=== PATIENT | male | born 1950 | race African-American/Black ===

== ENCOUNTER 2019-05-03 13:02 | Inpatient (IN) | payer OTHER ==
[2019-05-03 14:45] VITALS: BMI 24.2
--- NOTE | 2019-05-03 15:46 | HP ---
CIWA Score - Admission Criteria [facility]AS Guidelines: Admission for Medically Managed Detox: Requires at least one of the followin. CIWA greater than 12 2. Seizures within the past 24 hours 3. Delirium tremens within the past 24 hours 4. Hallucinations within the past 24 hours 5. Acute intervention needed for co occurring medical disorder 6. Acute intervention needed for co occurring psychiatric disorder 7. Severe withdrawal that cannot be handled at a lower level of care (continued vomiting, continued diarrhea, abnormal vital signs) requiring intravenous medication and/or fluids 8. Admission ROS [facility] Chief Complaint: seeking rehab after finishing detox Allergies/Adverse Reactions: Allergies Allergy/AdvReac Type Severity Reaction Status Date / Time Pork/Porcine Containing AdvReac Intermediate Nausea Verified 05/03/19 14:20 Products History of Present Illness: 69 y/o/m here seeking rehab. He stated detox at [facility] on 04/26 and finished his stay there today and then came here directly. He states he was given Librium while in detox. He would like to stay here for rehab. He states he was in detox for alcohol. He was also using THC, percocets, cocaine, and K2. He was drinking a pint of vodka and 6 pack of 16oz of beer daily. He started drinking early in the mornings and continued throughout the day. He was using $ 20-$30 dollars worth of cocaine daily which he was using by smoking. He was smoking 1 blunt of marijuana daily. He was also doing K2 once a week. He was using Percocet twice a week which he was buying off the street. He is currently smoking 4 cigarettes a day. He has a history of seizures and his last seizure was about 2 weeks ago. He did not go to a hospital at time. He has a history of afib, HTN, chronic back pain, PTSD, insomnia, anxiety attacks. He is living in his own apartment with a roommate and is unemployed. Patient has a history of a positive PPD (unsure of when) and states he took TB medications for one year and has had negative CXR since. He complains of chronic back pain. - Ebola screening Have you traveled outside of the country in the last 21 days: No Have you had contact with anyone from an Ebola affected area: No Do you have a fever: No - Review of Systems Constitutional: No Symptoms Reported EENT: reports: No Symptoms Reported. denies: Nose Congestion, Throat Pain Respiratory: reports: No Symptoms reported Cardiac: reports: No Symptoms Reported GI: reports: Diarrhea. denies: Nausea : reports: No Symptoms Reported Musculoskeletal: reports: Back Pain (chronic) Integumentary: reports: No Symptoms Reported Neuro: reports: Tremors Endocrine: reports: No Symptoms Reported Psychiatric: reports: Anxious Other Systems: Reviewed and Negative Patient History - Patient Medical History Hx Anemia: No Hx Asthma: No Hx Chronic Obstructive Pulmonary Disease (COPD): No Hx Cancer: No Hx Cardiac Disorders: Yes (Atrial fibrillation) Hx Congestive Heart Failure: No Hx Hypertension: Yes Hx Hypercholesterolemia: No Hx Pacemaker: No HX Cerebrovascular Accident: No Hx Seizures: No Hx Dementia: No Hx Diabetes: No Hx Gastrointestinal Disorders: No Hx Liver Disease: Yes Hx Genitourinary Disorders: No Hx Sexually Transmitted Disorders: No Hx Renal Disease (ESRD): No Hx Thyroid Disease: No Hx Human Immunodeficiency Virus (HIV): No (negative 02/04/19) Hx Hepatitis C: No Hx Depression: Yes Hx Suicide Attempt: No Hx Bipolar Disorder: No Hx Schizophrenia: No Other Medical History: no suicidal or homicidal ideations - Patient Surgical History Past Surgical History: No Hx Neurologic Surgery: No Hx Cataract Extraction: No Hx Cardiac Surgery: No Hx Lung Surgery: No Hx Breast Surgery: No Hx Breast Biopsy: No Hx Abdominal Surgery: No Hx Appendectomy: No Hx Cholecystectomy: No Hx Genitourinary Surgery: No Hx Section: No Hx Orthopedic Surgery: No Anesthesia Reaction: No - PPD History Previous Implant?: Yes Documented Results: Positive w/o proof Implanted On Prior [facility] Admission?: No Date: 10/30/18 Results: positive PPD - Smoking Cessation Smoking history: Current every day smoker Have you smoked in the past 12 months: Yes Aproximately how many cigarettes per day: 4 Cigars Per Day: 0 Hx Chewing Tobacco Use: No Initiated information on smoking cessation: Yes 'Breaking Loose' booklet given: 05/03/19 - Substance & Tx. History Hx Alcohol Use: Yes Substance Use Type: Alcohol, Cocaine, Marijuana - Substances abused Alcohol Substance route: Oral Frequency: Daily Amount used: 1 PINT, 6PACK Age of first use: 19 Date of last use: 04/25/19 Marijuana/Hashish Substance route: Smoking Frequency: Daily Amount used: 1BLUNT Age of first use: 22 Date of last use: 04/25/19 Crack Substance route: Smoking Frequency: Daily Amount used: $20-$30 Age of first use: 40 Date of last use: 04/25/19 K2/Spice Substance route: Smoking Frequency: 1-2 times per week Amount used: 1STICK Age of first use: 65 Date of last use: 04/25/19 Family Disease History - Family Disease History Family Disease History: Other: Father (alcoholism - ), Mother ( alcoholism - ) Admission Physical Exam [facility] - Vital Signs Vital Signs: Vital Signs - 24 hr 05/03/19 14:15 Temperature 97.4 F L Pulse Rate 91 H Respiratory 18 Rate Blood Pressure 147/98 - Physical General Appearance: Yes: Disheveled HEENTM: Yes: EOMI, Normocephalic, Other (poor dentition) Respiratory: Yes: Lungs Clear, No Accessory Muscle Use Neck: Yes: Supple Cardiology: Yes: S1, S2, Irregularly Irregular Abdominal: Yes: Normal Bowel Sounds, Non Tender, Soft. No: Guarding, Rebound Musculoskeletal: Yes: full range of Motion Extremities: Yes: Normal Capillary Refill. No: Swelling, Calf Tenderness Neurological: Yes: reagent tender helper II-XII NML intact, Fully Oriented, Alert, Motor Strength 5/5, Finger to Nose Integumentary: Yes: Dry. No: Rash, Pitting Edema - Diagnostic (1) Alcohol use disorder Current Visit: Yes Status: Acute (2) Cocaine use disorder, mild, abuse Current Visit: Yes Status: Acute (3) Afib Current Visit: Yes Status: Acute (4) Positive PPD Current Visit: Yes Status: Acute (5) Cannabis dependence Current Visit: Yes Status: Chronic (6) Hypertension Current Visit: No Status: Chronic Qualifiers: Hypertension type: essential hypertension Qualified Code(s): I10 - Essential (primary) hypertension (7) Nicotine dependence Current Visit: Yes Status: Chronic Qualifiers: Nicotine product type: cigarettes Substance use status: in withdrawal Qualified Code(s): F17.213 - Nicotine dependence, cigarettes, with withdrawal Cleared for Admission [facility] - Detox or Rehab Claeared for Rehab Admission: Yes Breathalyzer - Breathalyzer Breathalyzer: 0 Urine Drug Screen - Test Device Lot number: [id number] Expiration date: 12/27/20 - Control Is test valid?: Yes - Results Drug screen NEGATIVE: No Urine drug screen results: BZO-Benzodiazepines Inpatient Rehab Admission - Rehab Decision to Admit Inpatient rehab admission?: Yes - Initial Determination Are CD services needed?: No Free of communicable disease: Yes Not in need of hospitalization: Yes - Rehab Admission Criteria Previous failed treatment: Yes Poor recovery environment: Yes Comorbidities: Yes Lacks judgement: Yes Patient is meeting Inpatient Rehab admission criteria:: Yes
[2019-05-03] MEDS ORDERED: guaiFENesin 200 MG/10 ML 10 ML UNIT-DOSE CUPS PO PRN (16:12)
[2019-05-03] MEDS ORDERED: MENTHOL/PHENOL 1 EACH UD MM PRN (16:12)
[2019-05-03] MEDS ORDERED: LOPERAMIDE HCL 2 MG CAPSULE PO PRN (16:12)
[2019-05-03] MEDS ORDERED: MAGNESIUM CITRATE 300 ML BOTTLE PO PRN (16:12)
[2019-05-03] MEDS ORDERED: P-EPHED 60MG/TRIPROLIDI 2.5MG TABLET PO PRN (16:12)
[2019-05-03] MEDS ORDERED: NICOTINE POLACRILEX 2 MG GUM BC PRN (16:12)
[2019-05-03] MEDS ORDERED: ACETAMINOPHEN 325 MG TABLET (FP) PO PRN (16:12)
[2019-05-03] MEDS ORDERED: MAG HYDROX/AL HYDROX/SIMETH 30 ML UNIT-DOSE CUP PO PRN (16:12)
[2019-05-03] MEDS ORDERED: MAGNESIUM HYDROX 2400MG/30ML ORAL SUSPENSION 30 ML CUP PO PRN (16:12)
[2019-05-03] MEDS: ASPIRIN COATED 81 MG TABLET.EC PO SCH (18:45)
[2019-05-03] MEDS: HYDROCHLOROTHIAZIDE 12.5 MG CAPSULE (FP) PO SCH (18:45)
[2019-05-03] MEDS: MELATONIN 5 MG TABLETS PO PRN (21:02)
[2019-05-03] MEDS: THIAMINE HCL 100 MG TABLET (FP) PO SCH (21:02)
[2019-05-03] MEDS: IBUPROFEN 400 MG TABLET (FP) PO PRN (21:04)
[2019-05-04] MEDS: IBUPROFEN 400 MG TABLET (FP) PO PRN (06:13)
[2019-05-04] MEDS: PRENATAL VITAMINS W/ FOLIC ACID TABLET (FP) PO SCH (09:28)
[2019-05-04] MEDS: ASPIRIN COATED 81 MG TABLET.EC PO SCH (09:28)
[2019-05-04] MEDS: HYDROCHLOROTHIAZIDE 12.5 MG CAPSULE (FP) PO SCH (09:28)
[2019-05-04 11:12] LABS: HEMATOCRIT 41.9 % (35.4-49); HEMOGLOBIN 14.5 GM/dL (11.7-16.9); MCH 31.3 pg (25.7-33.7); MCHC 34.5 g/dl (32.0-35.9); MEAN CELL VOLUME 90.5 fl (80-96); MEAN PLT VOLUME 9.1 fl (7.5-11.1); RBC 4.63 M/mm3 (4.00-5.60); RDW 15.3 % (11.9-15.9); WHITE BLOOD COUNT 5.8 K/mm3 (4.0-10.0)
[2019-05-04 11:22] LABS: ALBUMIN 3.1 g/dl (3.4-5.0); BILIRUBIN,TOTAL 0.3 mg/dL (0.2-1); BLOOD UREA NITROGEN 16.6 mg/dL (7-18); CALCIUM 8.7 mg/dL (8.5-10.1); POTASSIUM 4.3 mmol/L (3.5-5.1)
[2019-05-04 12:17] LABS: PLATELET COUNT 156 K/MM3 (134-434)
[2019-05-04 12:51] LABS: EPI CELLS 1.5 /HPF (0-5/HPF); HYALINE CASTS 4 /lpf (0-8); URINE APPEARANCE CLEAR; URINE BILIRUBIN NEGATIVE (NEGATIVE); URINE COLOR YELLOW; URINE GLUCOSE (UA) NEGATIVE (NEGATIVE); URINE KETONE NEGATIVE (NEGATIVE); URINE LEUK ESTERASE TRACE (NEGATIVE); URINE NITRITE NEGATIVE (NEGATIVE); URINE PROTEIN NEGATIVE (NEGATIVE); URINE RBC 1 /hpf (0-4); URINE UROBILINOGEN 0.2 mg/dL (0.2-1.0); URINE WBC 3 /hpf (0-5)
[2019-05-04] MEDS: hydrOXYzine PAMOATE 25 MG CAPSULE (FP) PO PRN (14:32)
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
[2019-05-04] MEDS: THIAMINE HCL 100 MG TABLET (FP) PO SCH (21:19)
[2019-05-04] MEDS: traZODone HCL 50 MG TABLET (FP) PO SCH (21:20)
[2019-05-05] MEDS: IBUPROFEN 400 MG TABLET (FP) PO PRN (06:36)
[2019-05-05] MEDS: HYDROCHLOROTHIAZIDE 12.5 MG CAPSULE (FP) PO SCH (09:41)
[2019-05-05] MEDS: PRENATAL VITAMINS W/ FOLIC ACID TABLET (FP) PO SCH (09:41)
[2019-05-05] MEDS: ASPIRIN COATED 81 MG TABLET.EC PO SCH (09:41)
[2019-05-05] MEDS: THIAMINE HCL 100 MG TABLET (FP) PO SCH (21:39)
[2019-05-05] MEDS: traZODone HCL 50 MG TABLET (FP) PO SCH (21:39)
[2019-05-06] MEDS: ASPIRIN COATED 81 MG TABLET.EC PO SCH (09:51)
[2019-05-06] MEDS: PRENATAL VITAMINS W/ FOLIC ACID TABLET (FP) PO SCH (09:51)
[2019-05-06] MEDS: HYDROCHLOROTHIAZIDE 12.5 MG CAPSULE (FP) PO SCH (09:51)
[2019-05-06] MEDS: THIAMINE HCL 100 MG TABLET (FP) PO SCH (21:13)
[2019-05-06] MEDS: traZODone HCL 50 MG TABLET (FP) PO SCH (21:13)
[2019-05-07] MEDS: IBUPROFEN 400 MG TABLET (FP) PO PRN (07:30)
[2019-05-07] MEDS: PRENATAL VITAMINS W/ FOLIC ACID TABLET (FP) PO SCH (10:03)
[2019-05-07] MEDS: HYDROCHLOROTHIAZIDE 12.5 MG CAPSULE (FP) PO SCH (10:03)
[2019-05-07] MEDS: ASPIRIN COATED 81 MG TABLET.EC PO SCH (10:03)
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
[2019-05-07] MEDS: LIDOCAINE 5% TOPICAL PATCH TP SCH (12:50)
[2019-05-07] MEDS: METHOCARBAMOL 500 MG TABLET PO PRN (12:51)
[2019-05-07] MEDS: traZODone HCL 50 MG TABLET (FP) PO SCH (21:35)
[2019-05-07] MEDS: THIAMINE HCL 100 MG TABLET (FP) PO SCH (21:35)
[2019-05-07] MEDS: LIDOCAINE PATCH REMOVAL MC SCH (21:35)
[2019-05-07] MEDS: METHYL SALICYLATE/MENTHOL OINT 30 GM TUBE TP SCH (21:36)
[2019-05-08] MEDS: LIDOCAINE 5% TOPICAL PATCH TP SCH (10:00)
[2019-05-08] MEDS: ASPIRIN COATED 81 MG TABLET.EC PO SCH (10:00)
[2019-05-08] MEDS: PRENATAL VITAMINS W/ FOLIC ACID TABLET (FP) PO SCH (10:00)
[2019-05-08] MEDS: HYDROCHLOROTHIAZIDE 12.5 MG CAPSULE (FP) PO SCH (10:00)
[2019-05-08] MEDS: THIAMINE HCL 100 MG TABLET (FP) PO SCH (21:13)
[2019-05-08] MEDS: traZODone HCL 50 MG TABLET (FP) PO SCH (21:13)
[2019-05-08] MEDS: MELATONIN 5 MG TABLETS PO PRN (21:13)
[2019-05-08] MEDS: METHOCARBAMOL 500 MG TABLET PO PRN (21:14)
[2019-05-08] MEDS: METHYL SALICYLATE/MENTHOL OINT 30 GM TUBE TP SCH (21:21)
[2019-05-08] MEDS: LIDOCAINE PATCH REMOVAL MC SCH (21:21)
[2019-05-09] MEDS: LIDOCAINE 5% TOPICAL PATCH TP SCH (09:59)
[2019-05-09] MEDS: PRENATAL VITAMINS W/ FOLIC ACID TABLET (FP) PO SCH (09:59)
[2019-05-09] MEDS: HYDROCHLOROTHIAZIDE 12.5 MG CAPSULE (FP) PO SCH (09:59)
[2019-05-09] MEDS: ASPIRIN COATED 81 MG TABLET.EC PO SCH (09:59)
[2019-05-09] MEDS: traZODone HCL 50 MG TABLET (FP) PO SCH (21:32)
[2019-05-09] MEDS: THIAMINE HCL 100 MG TABLET (FP) PO SCH (21:32)
[2019-05-09] MEDS: hydrOXYzine PAMOATE 25 MG CAPSULE (FP) PO PRN (21:33)
[2019-05-09] MEDS: METHYL SALICYLATE/MENTHOL OINT 30 GM TUBE TP SCH (21:36)
[2019-05-09] MEDS: LIDOCAINE PATCH REMOVAL MC SCH (21:37)
[2019-05-10] MEDS: LIDOCAINE 5% TOPICAL PATCH TP SCH (09:45)
[2019-05-10] MEDS: HYDROCHLOROTHIAZIDE 12.5 MG CAPSULE (FP) PO SCH (09:46)
[2019-05-10] MEDS: ASPIRIN COATED 81 MG TABLET.EC PO SCH (09:46)
[2019-05-10] MEDS: PRENATAL VITAMINS W/ FOLIC ACID TABLET (FP) PO SCH (09:47)
[2019-05-10] MEDS: METHYL SALICYLATE/MENTHOL OINT 30 GM TUBE TP SCH (22:01)
[2019-05-10] MEDS: traZODone HCL 50 MG TABLET (FP) PO SCH (22:01)
[2019-05-10] MEDS: THIAMINE HCL 100 MG TABLET (FP) PO SCH (22:01)
[2019-05-10] MEDS: LIDOCAINE PATCH REMOVAL MC SCH (22:02)
[2019-05-11 06:29] VITALS: TEMP 98.1
[2019-05-11] MEDS: PRENATAL VITAMINS W/ FOLIC ACID TABLET (FP) PO SCH (09:54)
[2019-05-11] MEDS: LIDOCAINE 5% TOPICAL PATCH TP SCH (09:54)
[2019-05-11] MEDS: ASPIRIN COATED 81 MG TABLET.EC PO SCH (09:54)
[2019-05-11] MEDS: HYDROCHLOROTHIAZIDE 12.5 MG CAPSULE (FP) PO SCH (09:54)
[2019-05-11 10:44] VITALS: BP 107/77; PULSE 94
--- NOTE | 2019-05-11 11:59 | PN ---
[facility] Progress Note Note: [facility] *LIVE* Discharge Summary Patient Name: TONIA SORENSEN Date of : 1950 Patient Status: Inpatient Attending Provider: Marie Ibarra Date: 05/11/19 11:54 Initialization Date: 05/11/19 11:54 Discharge Summary Admission Date: 05/03/19 Discharge Date: 05/11/19 - History Present History: Alcohol Dependence Pertinent Past History: A-Fib, htn, liver disease, depression - Physical Exam Results Vital Signs: Vital Signs Temperature 98.1 F 05/11/19 06:28 Pulse Rate 94 H 05/11/19 10:43 Respiratory Rate 18 05/11/19 06:28 Blood Pressure 107/77 05/11/19 10:43 O2 Sat by Pulse Oximetry (%) Laboratory Last Values WBC 5.8 K/mm3 (4.0-10.0) 05/04/19 08:00 RBC 4.63 M/mm3 (4.00-5.60) 05/04/19 08:00 Hgb 14.5 GM/dL (11.7-16.9) 05/04/19 08:00 Hct 41.9 % (35.4-49) 05/04/19 08:00 MCV 90.5 fl (80-96) 05/04/19 08:00 MCH 31.3 pg (25.7-33.7) 05/04/19 08:00 MCHC 34.5 g/dl (32.0-35.9) 05/04/19 08:00 RDW 15.3 % (11.9-15.9) 05/04/19 08:00 Plt Count 156 K/MM3 (134-434) 05/04/19 08:00 MPV 9.1 fl (7.5-11.1) 05/04/19 08:00 Sodium 142 mmol/L (136-145) 05/04/19 08:00 Potassium 4.3 mmol/L (3.5-5.1) 05/04/19 08:00 Chloride 107 mmol/L (98-107) 05/04/19 08:00 Carbon Dioxide 30 mmol/L (21-32) 05/04/19 08:00 Anion Gap 5 MMOL/L (8-16) L 05/04/19 08:00 BUN 16.6 mg/dL (7-18) 05/04/19 08:00 Creatinine 1.0 mg/dL (0.55-1.3) 05/04/19 08:00 Est GFR (CKD-EPI)AfAm 89.86 05/04/19 08:00 Est GFR (CKD-EPI)NonAf 77.54 05/04/19 08:00 Random Glucose 77 mg/dL (74-106) 05/04/19 08:00 Calcium 8.7 mg/dL (8.5-10.1) 05/04/19 08:00 Total Bilirubin 0.3 mg/dL (0.2-1) 05/04/19 08:00 AST 22 U/L (15-37) 05/04/19 08:00 ALT 21 U/L (13-61) 05/04/19 08:00 Alkaline Phosphatase 50 U/L (45-117) 05/04/19 08:00 Total Protein 6.0 g/dl (6.4-8.2) L 05/04/19 08:00 Albumin 3.1 g/dl (3.4-5.0) L 05/04/19 08:00 Urine Color Yellow 05/04/19 08:00 Urine Appearance Clear 05/04/19 08:00 Urine pH 5.0 (5.0-8.0) 05/04/19 08:00 Ur Specific [place] 1.022 (1.010-1.035) 05/04/19 08:00 Urine Protein Negative (NEGATIVE) 05/04/19 08:00 Urine Glucose (UA) Negative (NEGATIVE) 05/04/19 08:00 Urine Ketones Negative (NEGATIVE) 05/04/19 08:00 Urine Blood Negative (NEGATIVE) 05/04/19 08:00 Urine Nitrite Negative (NEGATIVE) 05/04/19 08:00 Urine Bilirubin Negative (NEGATIVE) 05/04/19 08:00 Urine Urobilinogen 0.2 mg/dL (0.2-1.0) 05/04/19 08:00 Ur Leukocyte Esterase Trace (NEGATIVE) 05/04/19 08:00 Urine WBC (Auto) 3 /hpf (0-5) 05/04/19 08:00 Urine RBC (Auto) 1 /hpf (0-4) 05/04/19 08:00 Urine Casts (Auto) 4 /lpf (0-8) 05/04/19 08:00 U Epithel Cells (Auto) 1.5 /HPF (0-5/HPF) 05/04/19 08:00 Urine Bacteria (Auto) 8.0 /hpf (NEGATIVE) 05/04/19 08:00 RPR Titer Nonreactive (NONREACTIVE) 05/04/19 08:00 HIV 1&2 Antibody Screen Negative 05/08/19 06:00 HIV P24 Antigen Negative 05/08/19 06:00 - Medication Discharge Medications: Ambulatory Orders Bupropion HCl [Wellbutrin -] 150 mg PO DAILY 06/04/15 Aspirin Coated [Ecotrin -] 81 mg PO DAILY #30 tablet.ec 09/22/15 traZODone HCL [Desyrel -] 100 mg PO HS #30 tablet 09/23/15 Multivitamins [Tab-A-Vit -] 1 tab PO DAILY 05/03/19 Risperidone [Risperdal -] 2 mg PO DAILY 05/03/19 Hydrochlorothiazide [Hctz -] 12.5 mg PO DAILY #30 cap 05/11/19 - Diagnosis (1) Alcohol dependence Current Visit: Yes Status: Chronic (2) Cannabis dependence, continuous use Current Visit: No Status: Acute (3) Hypertension Current Visit: No Status: Chronic Qualifiers: Hypertension type: essential hypertension Qualified Code(s): I10 - Essential (primary) hypertension (4) Paroxysmal atrial fibrillation Current Visit: No Status: Chronic - AMA Did Patient Leave Against Medical Advice: No Patient requested early discharge following 7 days of rehab.
--- NOTE | 2019-05-11 12:05 | PN ---
[facility] Progress Note Note: Psychiatric nurse practitioner note: Patient being discharged on 05/11/19. A 30 day supply of Wellbutrin 150mg Xl + Trazodone 50mg HS was electronically sent to [facility] at [address] [place] [address].
== END 2019-05-11 12:00 | disposition home or self-care (01) | DRG 895 ==
LOC: YASAS 13:02 → Y5N 16:48
PROVIDERS: ADMIT Neuromusculoskeletal Medicine & OMM; ATTEND Neuromusculoskeletal Medicine & OMM
PROC: HZ42ZZZ Group Counseling for Substance Abuse Treatment, Cognitive-Behavioral (ICD-10-PCS; principal; 2019-05-03)
DX: F10.20 Alcohol dependence, uncomplicated (principal); F14.20 Cocaine dependence, uncomplicated; F12.20 Cannabis dependence, uncomplicated; F17.210 Nicotine dependence, cigarettes, uncomplicated; F39 Unspecified mood [affective] disorder; F19.24 Other psychoactive substance dependence with psychoactive substance-induced mood disorder; F32.9 Major depressive disorder, single episode, unspecified; F43.10 Post-traumatic stress disorder, unspecified; I10 Essential (primary) hypertension; I48.0 Paroxysmal atrial fibrillation; G47.00 Insomnia, unspecified; K76.9 Liver disease, unspecified; M54.5 Low back pain; G89.29 Other chronic pain; Z91.19 Patient's noncompliance with other medical treatment and regimen
CPT/HCPCS: 36415; 71045-TC-FY; 80053; 81003; 85027; 86593; 87389